=== PATIENT | male | born 2000 | race Caucasian/White ===

== ENCOUNTER 2020-09-18 13:43 | Emergency (ER) | payer OTHER ==
[~2020-09-18] VITALS: Ht 177.8 cm; Wt 87.4 kg
[2020-09-18] MEDS ORDERED: LIDOCAINE VISCOUS 2% SOLN 15ML UDC SS ONE (16:35)
[2020-09-18] MEDS ORDERED: NS 1,000 ML IV ONE (16:35)
[2020-09-18] MEDS ORDERED: dexameTHASONE 20MG/5ML VIAL (J1100 PER 1MG) IV ONE (16:35)
[2020-09-18 16:50] LABS: BASO # 0.2 10^3/uL (0.0-0.2); BASO % 1.1 % (0.0-1.0); HEMATOCRIT 44.9 % (42.0-52.0); HEMOGLOBIN 15.2 g/dl (13.5-17.5); LYMPH # 7.8 10^3/uL (1.5-5.0); LYMPH % 55.6 % (24.0-44.0); MEAN CORPUSCULAR HEMOGLOBIN 28.7 pg (27.0-33.0); MEAN CORPUSCULAR HGB CONC 33.9 g/dl (32.0-36.5); MEAN CORPUSCULAR VOLUME 84.9 fl (80.0-96.0); MONO # 0.9 10^3/uL (0.0-0.8); MONO % 6.2 % (2.0-8.0); NEUTROPHILS # 5.1 10^3/uL (1.5-8.5); NEUTROPHILS % 36.7 % (36.0-66.0); PLATELET COUNT, AUTOMATED 179 10^3/uL (150-450); RED BLOOD COUNT 5.29 10^6/uL (4.30-6.10)
[2020-09-18 17:22] LABS: MONO SCRN POSITIVE (NEGATIVE)
[2020-09-18] MEDS ORDERED: LIDO2SOL17 PO (18:01)
[2020-09-18 18:23] VITALS: BP 128/75
== END 2020-09-18 18:27 | disposition home or self-care (01) ==
LOC: M ED 17:17
DX: J03.80 Acute tonsillitis due to other specified organisms (principal)
CPT/HCPCS: 36415; 85025; 86308; 87880; 96361; 96374; 99283; J1100